=== PATIENT | female | born 1955 | race Caucasian/White ===

== ENCOUNTER 2017-08-30 07:08 | Emergency (ER) | payer OTHER ==
[~2017-08-30] VITALS: Ht 162.6 cm; Wt 68.5 kg
[~2017-08-30 07:08] MED LIST: CIPR500T4 PO; FLAG500T PO; LOVA40TA PO; ULTR50TA PO; ZOFR4TAB3 SL
[2017-08-30 07:15] VITALS: BP 126/72; PULSE 86; RESP 16; TEMP 98.9; O2SAT 98
[2017-08-30] MEDS ORDERED: LOVA40TA PO (07:26)
--- NOTE | 2017-08-30 07:40 | PD ---
HPI Chief Complaint: Abdominal Pain Time Seen by Provider: 07:25 Travel History International Travel<30 days: No Contact w/Intl Traveler<30days: No Traveled to known affect area: No History of Present Illness HPI This 61-year-old female is complaining of lower abdominal pain. She had some diarrhea on Sunday and took some Imodium. He started having pain a couple of days ago was quite bad yesterday. She is not aware of any fever. It is bilateral lower abdominal pain. She does have some pain in her back also. She has a history of diverticulitis. Her last episode was in 2016. She does see Dr. Mi to and has had colonoscopies in the past. She is not aware of fever. PFSH Past Medical History Hx Anticoagulant Therapy: No Cardiovascular Problems: Yes (CHOL) High Cholesterol: Yes Diabetes: No Diminished Hearing: No Diverticulitis: Yes Influenza Vaccination: No ?: Not Menopausal: Yes Past Surgical History Body Medical Devices: LEUKOPLASIA Pacemaker: No Tonsillectomy: Yes Social History Alcohol Use: Yes (SOCIAL) Tobacco Use: Yes (1 PPD) Substance Use: No Allergies-Medications (Allergen,Severity, Reaction): Coded Allergies: No Known Allergies (Verified , 12/14/15) Reported Meds & Prescriptions Reported Meds & Active Scripts Active Reported Lovastatin 40 Mg Tab 40 Mg PO DAILY Review of Systems General / Constitutional: No: Fever, Chills Eyes: No: Diploplia, Blurred Vision HENT: No: Headaches, Vertigo Cardiovascular: No: Chest Pain or Discomfort, Palpitations Respiratory: No: Cough, Shortness of Breath Gastrointestinal: Positive: Abdominal Pain, Loss of Appetite Genitourinary: No: Urgency Musculoskeletal: No: Myalgias, Arthralgias Skin: No Rash, No Itching Hematologic/Lymphatic: No: Easy Bruising Physical Exam Narrative GENERAL well-developed female SKIN: Focused skin assessment warm/dry. HEAD: Atraumatic. Normocephalic. EYES: Pupils equal and round. No scleral icterus. No injection or drainage. ENT: No nasal bleeding or discharge. Mucous membranes pink and moist. NECK: Trachea midline. No JVD. CARDIOVASCULAR: Regular rate and rhythm. No murmur appreciated. RESPIRATORY: No accessory muscle use. Clear to auscultation. Breath sounds equal bilaterally. GASTROINTESTINAL: Abdomen soft, there is some lower abdominal tenderness without rigidity, nondistended. Hepatic and splenic margins not palpable. MUSCULOSKELETAL: No obvious deformities. No clubbing. No cyanosis. No edema. NEUROLOGICAL: Awake and alert. No obvious cranial nerve deficits. Motor grossly within normal limits. Normal speech. PSYCHIATRIC: Appropriate mood and affect; insight and judgment normal. Data Data Last Documented VS Vital Signs Date Time Temp Pulse Resp B/P (MAP) Pulse Ox O2 Delivery O2 Flow Rate FiO2 08/30/17 07:15 98.9 86 16 126/72 (90) 98 Orders Orders Complete Blood Count With Diff (08/30/17 07:36) Comprehensive Metabolic Panel (08/30/17 07:36) Urinalysis - C+S If Indicated (08/30/17 07:36) Ct Abd/Pel W Iv Contrast(Rout) (08/30/17 07:36) Levofloxacin 500 Mg Premix Inj (Levaquin (08/30/17 07:45) Iohexol 350 Inj (Omnipaque 350 Inj) (08/30/17 08:30) Labs Laboratory Tests Test 08/30/17 07:40 08/30/17 07:45 Urine Collection Type CLEAN CATCH Urine Color YELLOW Urine Turbidity CLEAR Urine pH 5.5 Urine Specific [place] LESS/EQUAL 1.005 Urine Protein NEG mg/dL Urine Glucose (UA) NEG mg/dL Urine Ketones NEG mg/dL Urine Occult Blood NEG Urine Nitrite NEG Urine Bilirubin NEG Urine Urobilinogen 0.2 MG/DL Urine Leukocyte Esterase NEG Urine RBC 0-3 /hpf Urine Squamous Epithelial Cells 0-5 /hpf Microscopic Urinalysis Comment CULT NOT INDICATED Urine Collection Time 07:40 White Blood Count 8.9 TH/MM3 Red Blood Count 4.68 MIL/MM3 Hemoglobin 14.6 GM/DL Hematocrit 42.3 % Mean Corpuscular Volume 90.3 FL Mean Corpuscular Hemoglobin 31.2 PG Mean Corpuscular Hemoglobin Concent 34.5 % Red Cell Distribution Width 12.6 % Platelet Count 348 TH/MM3 Mean Platelet Volume 7.2 FL Neutrophils (%) (Auto) 65.4 % Lymphocytes (%) (Auto) 25.5 % Monocytes (%) (Auto) 6.8 % Eosinophils (%) (Auto) 1.7 % Basophils (%) (Auto) 0.6 % Neutrophils # (Auto) 5.7 TH/MM3 Lymphocytes # (Auto) 2.3 TH/MM3 Monocytes # (Auto) 0.6 TH/MM3 Eosinophils # (Auto) 0.2 TH/MM3 Basophils # (Auto) 0.1 TH/MM3 CBC Comment DIFF FINAL Differential Comment Blood Urea Nitrogen 8 MG/DL Creatinine 0.58 MG/DL Random Glucose 102 MG/DL Total Protein 8.1 GM/DL Albumin 4.0 GM/DL Calcium Level 9.0 MG/DL Alkaline Phosphatase 84 U/L Aspartate Amino Transf (AST/SGOT) 21 U/L Alanine Aminotransferase (ALT/SGPT) 27 U/L Total Bilirubin 0.5 MG/DL Sodium Level 134 MEQ/L Potassium Level 4.2 MEQ/L Chloride Level 101 MEQ/L Carbon Dioxide Level 25.6 MEQ/L Anion Gap 7 MEQ/L Estimat Glomerular Filtration Rate 106 ML/MIN [facility] Medical Decision Making Medical Screen Exam Complete: Yes Emergency Medical Condition: Yes Medical Record Reviewed: Yes Differential Diagnosis Differential includes UTI, diverticulitis, nonspecific abdominal pain Narrative Course White count is 8.9. A CT scan of the abdomen and pelvis was obtained. There is mild wall thickening of the distal sigmoid consistent with diverticulitis. There is no perforation or free air. Patient will be started on Cipro and Flagyl. Diagnosis Primary Impression: Acute diverticulitis Scripts Metronidazole (Flagyl) 500 Mg Tab 500 MG PO TID for Infection for 10 Days, TAB 0 Refills Prov: Kieran Pereyra MD 08/30/17 Ciprofloxacin (Cipro) 500 Mg Tab 500 MG PO BID for Infection for 10 Days, #20 TAB 0 Refills Prov: Kieran Pereyra MD 08/30/17 Disposition: 01 DISCHARGE HOME Condition: Stable Kieran Pereyra MD Aug 30, 2017 07:40
[2017-08-30] MEDS ORDERED: LEVOFLOXACIN 500 MG PREMIX INJ 100 ML IV ONE (07:45)
[2017-08-30 07:52] LABS: AUTOMATED NEUTROPHIL # 5.7 TH/MM3 (1.8-7.7); BASOPHIL # 0.1 TH/MM3 (0-0.2); BASOPHIL % 0.6 % (0.0-2.0); EOSINOPHIL # 0.2 TH/MM3 (0-0.4); EOSINOPHIL % 1.7 % (0.0-4.0); HEMATOCRIT 42.3 % (35.0-46.0); HEMOGLOBIN 14.6 GM/DL (11.6-15.3); LYMPH % 25.5 % (9.0-44.0); LYMPHOCYTE # 2.3 TH/MM3 (1.0-4.8); MEAN CELL VOLUME 90.3 FL (80.0-100.0); MEAN CORPUSCULAR HEMOGLOBIN 31.2 PG (27.0-34.0); MEAN CORPUSCULAR HGB CONC 34.5 % (32.0-36.0); MEAN PLATELET VOLUME 7.2 FL (7.0-11.0); MONO % 6.8 % (0.0-8.0); MONOCYTE # 0.6 TH/MM3 (0-0.9); NEUT % 65.4 % (16.0-70.0); PLATELET COUNT 348 TH/MM3 (150-450); RED BLOOD COUNT 4.68 MIL/MM3 (4.00-5.30); RED CELL DISTRIBUTION WIDTH 12.6 % (11.6-17.2); WHITE BLOOD COUNT 8.9 TH/MM3 (4.0-11.0)
[2017-08-30 07:53] LABS: BILIRUBIN, URINE NEG (NEG); BLOOD, URINE NEG (NEG); GLUCOSE,URINE NEG (NEG); KETONE, URINE NEG (NEG); NITRITE,URINE NEG (NEG); PH, URINE 5.5 (5.0-8.5); URINE COLOR YELLOW (YELLW/STRAW); URINE LEUKOCYTE ESTERASE NEG (NEG)
[2017-08-30 08:01] LABS: CHLORIDE 101 MEQ/L (98-107); SODIUM (NA) 134 MEQ/L (136-145)
[2017-08-30 08:12] LABS: BICARBONATE 25.6 MEQ/L (21.0-32.0); BLOOD UREA NITROGEN 8 MG/DL (7-18); GLUCOSE,RANDOM 102 MG/DL (74-106)
[2017-08-30 08:15] LABS: ALT (GPT) 27 U/L (10-53); AST (GOT) 21 U/L (15-37); CREATININE 0.58 MG/DL (0.50-1.00); GLOMERULAR FILTRATION RATE 106 ML/MIN (>89)
[2017-08-30 08:16] LABS: TOTAL BILIRUBIN ADULT 0.5 MG/DL (0.2-1.0)
[2017-08-30 08:17] LABS: TOTAL PROTEIN 8.1 GM/DL (6.4-8.2)
[2017-08-30 08:18] LABS: ALKALINE PHOSPHATASE 84 U/L (45-117)
[2017-08-30 08:23] LABS: RBC, URINE 0-3 /hpf (0-3); SQUAMOUS EPITHELIAL CELL URINE 0-5 /hpf (0-5)
[2017-08-30] MEDS ORDERED: IOHEXOL 350 MG/ML 10 ML VIAL (for RAD DIAG) IVCONTRAST ONE (08:30)
--- NOTE | 2017-08-30 08:49 | RADRPT ---
EXAM DATE/TIME: 08/30/2017 08:20 [place] COMPARISON: CT ABDOMEN & PELVIS W CONTRAST, December 14, 2015, 9:43. INDICATIONS : Lower abdominal pain. IV CONTRAST: 85 cc Omnipaque 350 (iohexol) IV ORAL CONTRAST: No oral contrast ingested. RADIATION DOSE: 11.08 CTDIvol (mGy) MEDICAL HISTORY : Diverticulitis. SURGICAL HISTORY : None. ENCOUNTER: Initial ACUITY: 4 - 6 days PAIN SCALE: 4/10 LOCATION: Bilateral lower quadrant TECHNIQUE: Volumetric scanning of the abdomen and pelvis was performed. Using automated exposure control and ad justment of the mA and/or kV according to patient size, radiation dose was kept as low as reasonably achievable to obtain optimal diagnostic quality images. DICOM format image data is available electro nically for review and comparison. FINDINGS: LOWER LUNGS: The visualized lower lungs are clear. LIVER: There are 3 low density lesions in the liver. The 2 largest measure 12 mm and 11 mm and had features consistent with cysts. There is an incidental 6 mm low-density lesion in the right lobe that is too s mall to characterize but given its stability it is consistent with a benign process, likely a cyst. N o concerning liver lesion is identified. There is no dilation of the biliary tree. No calcified gal lstones. SPLEEN: Normal size without lesion. PANCREAS: Within normal limits. KIDNEYS: Normal in size and shape. There is no mass, stone or hydronephrosis. ADRENAL GLANDS: There is stable mild thickening of the adrenal glands bilaterally. No mass is visualized. VASCULAR: There is no aortic aneurysm. There is moderate severity atherosclerotic disease. BOWEL/MESENTERY: The stomach and small bowel demonstrate no abnormality. The appendix and terminal ileum are normal. T here is sigmoid diverticulosis. The distal sigmoid colon demonstrates mild circumferential wall thick ening. There is trace free fluid in the adjacent pelvis. No free air is present. There is no abscess. No mesenteric lymphadenopathy is visualized. ABDOMINAL WALL: Within normal limits. RETROPERITONEUM: There is no lymphadenopathy. BLADDER: No wall thickening or mass. REPRODUCTIVE: There are stable coarse calcifications at the uterine fundus. No adnexal abnormality is seen. INGUINAL: There is no lymphadenopathy or hernia. MUSCULOSKELETAL: There are mild degenerative changes of the lumbar spine. CONCLUSION: 1. Mild wall thickening of the distal sigmoid colon in an area of diverticulosis. There is some mild surrounding inflammatory change and adjacent free fluid. Findings are characteristic of a mild acute diverticulitis. There is no abscess or free air. 2. Nonacute findings include moderate atherosclerotic disease and calcifications in the uterine fundu s, likely associated with uterine fibroids. Boubacar Pike MD on August 30, 2017 at 8:38 Board Certified Radiologist. This report was verified electronically.
[2017-08-30] MEDS ORDERED: METR-1 PO (08:55)
[2017-08-30] MEDS ORDERED: CIPR-9 PO (08:55)
[2017-08-30] MEDS ORDERED: metroNIDAZOLE 500 MG TAB PO ONE (09:00)
[2017-08-30 09:05] VITALS: BP 126/75; PULSE 67; RESP 18; O2SAT 94
== END 2017-08-30 09:55 | disposition home or self-care (01) ==
LOC: PHED 07:08
DX: K57.32 Diverticulitis of large intestine without perforation or abscess without bleeding (principal); E78.00 Pure hypercholesterolemia, unspecified; F17.200 Nicotine dependence, unspecified, uncomplicated
CPT/HCPCS: 74177; 80053; 81001; 85025; 96365; 99284; J1956; Q9967